=== PATIENT | male | born 1965 | race Caucasian/White ===

== ENCOUNTER 2018-05-19 06:32 | Day surgery (SDC) | payer BC ==
[~2018-05-19 06:32] MED LIST: CEFAZOLIN 2 GM/50 ML (PMX) 50 ML IVPB; SOD CHLORIDE 0.9% 1,000 ML IV
[2018-05-19] MEDS ORDERED: MIDAZOLAM 1 MG/ML 2 ML INJ (08:57)
[2018-05-19] MEDS: POLYMYXIN/BACITRACIN 1L IRRIG (09:28)
[2018-05-19] MEDS: BUPIVACAINE 0.25% (MPF) 30 ML INJ (09:28)
[2018-05-19] MEDS ORDERED: GLYCOPYRROLATE 0.4 MG INJ (10:05)
[2018-05-19] MEDS ORDERED: LIDOCAINE 2% (SDV) 5 ML INJ (10:05)
[2018-05-19] MEDS ORDERED: ROCURONIUM 50 MG INJ (10:05)
[2018-05-19] MEDS ORDERED: CEFAZOLIN 1 GM INJ (10:05)
[2018-05-19] MEDS ORDERED: NEOSTIGMINE 3 MG/3 ML SYRINGE (10:05)
[2018-05-19] MEDS ORDERED: PROPOFOL 20 ML (10:05)
[2018-05-19] MEDS ORDERED: ONDANSETRON 4 MG INJ (10:06)
[2018-05-19] MEDS ORDERED: DIPHENHYDRAMINE 50 MG INJ IV (10:30)
[2018-05-19] MEDS ORDERED: METOCLOPRAMIDE 10 MG INJ IV (10:30)
[2018-05-19] MEDS ORDERED: FENTAnyl 50 MCG/ML VIAL IV (10:30)
[2018-05-19] MEDS: ONDANSETRON 4 MG INJ IV (10:33)
[2018-05-19] MEDS: HYDROmorphONE 1 MG/5 ML IV SYRINGE IV ×3 (10:33→10:54)
[2018-05-19] MEDS: MEPERIDINE 25 MG INJ IV (10:34)
[2018-05-19] MEDS: HYDROCODONE/APAP (5/325) TAB PO (11:07)
== END 2018-05-19 16:15 | disposition home or self-care (01) ==
LOC: SDS 06:32
DX: K40.30 Unilateral inguinal hernia, with obstruction, without gangrene, not specified as recurrent (principal)
CPT/HCPCS: 49507; 88302

== ENCOUNTER 2018-08-01 10:26 | Day surgery (SDC) | payer BC ==
[2018-08-01] MEDS: SOD CHLORIDE 0.9% 1,000 ML IV (11:34)
[2018-08-01 11:45] LABS: ADD MAN DIFF? NO
[2018-08-01 11:47] LABS: WHITE BLOOD COUNT 4.8 10^3/ul (4.8-10.8)
[2018-08-01 11:47] LABS: BASOPHIL # 0.1 10^3/ul (0.0-0.1); EOSINOPHILS # 0.2 10^3/ul (0.0-0.5); EOSINOPHILS % 4.2 % (0.0-7.0); HEMATOCRIT 41.8 % (42.0-52.0); HEMOGLOBIN 13.7 g/dl (14.0-18.0); LYMPHOCYTES # 1.3 10^3/ul (0.8-2.9); LYMPHOCYTES % 26.2 % (15.0-51.0); MEAN CORPUSCULAR HEMOGLOBIN 29.9 pg (29.0-33.0); MEAN CORPUSCULAR HGB CONC 32.8 g/dl (32.0-37.0); MEAN CORPUSCULAR VOLUME 91.3 fl (82.0-101.0); MONOCYTE # 0.6 10^3/ul (0.3-0.9); MONOCYTES % 11.9 % (0.0-11.0); NEUTROPHIL # 2.7 10^3/ul (1.6-7.5); NEUTROPHILS % 56.5 % (39.0-77.0); PLATELET COUNT 257 10^3/UL (140-415); RED BLOOD COUNT 4.58 10^6/ul (4.70-6.10); RED CELL DISTRIBUTION WIDTH 13.1 % (11.5-14.5)
[2018-08-01] MEDS ORDERED: CEFAZOLIN 2 GM/50 ML (PMX) 50 ML IVPB (12:00)
[2018-08-01 12:07] LABS: INR 0.85; PROTIME 11.7 Sec (11.9-14.9); PT RATIO 0.9
[2018-08-01 12:08] LABS: PARTIAL THROMBOPLASTIN TIME 30.6 Sec (23.0-35.0)
[2018-08-01 12:17] LABS: ALANINE AMINOTRANSFERASE 21 IU/L (13-69); ALBUMIN 3.8 g/dl (3.3-4.9); ALBUMIN/GLOBULIN RATIO 1.11; ALKALINE PHOSPHATASE 73 IU/L (42-121); ANION GAP 3 (5-13); ASPARTATE AMINO TRANSFERASE 21 IU/L (15-46); BILIRUBIN,INDIRECT 0.5 mg/dl (0-1.1); BILIRUBIN,TOTAL 0.5 mg/dl (0.2-1.3); BLOOD UREA NITROGEN 15 mg/dl (7-20); CALCIUM 9.2 mg/dl (8.4-10.2); CARBON DIOXIDE 31 mmol/L (21-31); CHLORIDE 103 mmol/L (97-110); CREATININE 1.08 mg/dl (0.61-1.24); Estimated GFR > 60 mL/min (>60); GLUCOSE 99 mg/dl (70-220); SODIUM 137 mmol/L (135-144); TOTAL PROTEIN 7.2 g/dl (6.1-8.1)
[2018-08-01 12:25] LABS: POTASSIUM 5.2 mmol/L (3.5-5.1)
[2018-08-01] MEDS ORDERED: FENTAnyl 50 MCG/ML VIAL (12:32)
[2018-08-01] MEDS ORDERED: GLYCOPYRROLATE 0.4 MG INJ (12:32)
[2018-08-01] MEDS ORDERED: MIDAZOLAM 1 MG/ML 2 ML INJ (12:32)
[2018-08-01] MEDS ORDERED: NEOSTIGMINE 3 MG/3 ML SYRINGE (12:32)
[2018-08-01] MEDS ORDERED: CEFAZOLIN 1 GM INJ (12:32)
[2018-08-01] MEDS ORDERED: PROPOFOL 20 ML (12:32)
[2018-08-01] MEDS ORDERED: ROCURONIUM 50 MG INJ (12:32)
[2018-08-01] MEDS ORDERED: ONDANSETRON 4 MG INJ (12:33)
[2018-08-01] MEDS ORDERED: DEXAMETHASONE 4 MG/ML 5 ML INJ (12:33)
[2018-08-01] MEDS ORDERED: BUPIVACAINE 0.25% (MPF) 30 ML INJ (13:02)
[2018-08-01] MEDS ORDERED: LABETALOL HCL 20MG INJ IV (13:30)
[2018-08-01] MEDS ORDERED: IPRATROPIUM (NEB) 0.5 MG/2.5 ML AMP HHN (13:30)
[2018-08-01] MEDS ORDERED: DIPHENHYDRAMINE 50 MG INJ IV (13:30)
[2018-08-01] MEDS ORDERED: MIDAZOLAM 1 MG/ML 2 ML INJ IV (13:30)
[2018-08-01] MEDS ORDERED: ONDANSETRON 4 MG INJ IV (13:30)
[2018-08-01] MEDS ORDERED: ALBUTEROL 0.083% (NEB) 2.5 MG/3 ML AMP HHN (13:30)
[2018-08-01] MEDS ORDERED: FENTAnyl 50 MCG/ML VIAL IV ×2 (13:30)
[2018-08-01] MEDS ORDERED: HYDROmorphONE 1 MG/5 ML IV SYRINGE IV ×3 (13:30)
[2018-08-01] MEDS ORDERED: ROPIVACAINE 0.5 % 30 ML VIAL (13:30)
[2018-08-01] MEDS ORDERED: EPHEDrine 25 MG/5 ML SYG IV (13:30)
[2018-08-01] MEDS ORDERED: OXYCODONE/ACETAMINOPHEN (5/325) TAB PO (13:30)
[2018-08-01] MEDS ORDERED: MEPERIDINE 25 MG INJ IV (13:30)
[2018-08-01] MEDS ORDERED: hydrALAzine 20 MG INJ IV (13:30)
[2018-08-01] MEDS ORDERED: TRIMETHOBENZAMIDE 100 MG/ML VIAL IM (13:30)
[2018-08-01] MEDS: POLYMYXIN/BACITRACIN 1L IRRIG IRR (13:52)
[2018-08-01] MEDS ORDERED: POLYMYXIN/BACITRACIN 1L IRRIG (14:03)
[2018-08-01] MEDS ORDERED: HYDROCODONE/APAP (5/325) TAB PO (14:30)
[2018-08-01] MEDS: FENTAnyl 50 MCG/ML VIAL IV (14:55)
[2018-08-01] MEDS: OXYCODONE/ACETAMINOPHEN (5/325) TAB PO (15:49)
== END 2018-08-01 17:25 | disposition home or self-care (01) ==
LOC: SDS 10:26
DX: K40.30 Unilateral inguinal hernia, with obstruction, without gangrene, not specified as recurrent (principal)
CPT/HCPCS: 49507; 71045; 80053; 85025; 85610; 85730; 93005